=== PATIENT | male | born 1990 | race Caucasian/White ===

== ENCOUNTER 2020-09-15 07:09 | Emergency (ER) | payer OTHER ==
[~2020-09-15] VITALS: Ht 185.4 cm; Wt 89.4 kg
[2020-09-15] MEDS ORDERED: VOLTAREN-XR100 MG PO (12:31)
[2020-09-15] MEDS ORDERED: IVERMECTIN3 MG PO (12:31)
== END 2020-09-15 12:48 ==
LOC: ER 07:09
DX: U07.1 COVID-19 (principal)